=== PATIENT | female | born 1975 | race Caucasian/White ===

== ENCOUNTER 2018-08-20 10:53 | Day surgery (SDC) | payer OTHER ==
[~2018-08-20] VITALS: Ht 167.6 cm; Wt 129.5 kg
[~2018-08-20 10:53] MED LIST: APIX5TAB PO; ASPI-515 PO/NG; ATOR40TA78 PO; CARV12.52 PO; CARV3.122 PO; CEFD300C37 PO; HYDR-3237 PO; INSU100I13 INJ; INSU200I INJ; LISI40TA PO; ONDA4TAB10 PO; POLY17PO5 PO
[2018-08-20 11:20] VITALS: BP 129/95
[2018-08-20] MEDS ORDERED: LIDOCAINE 1%, 50ML ONE (12:46)
== END 2018-08-20 13:24 | disposition home or self-care (01) ==
LOC: CACL 10:53
PROVIDERS: ATTEND Internal Medicine Cardiovascular Disease
DX: Z45.09 Encounter for adjustment and management of other cardiac device (principal); I63.9 Cerebral infarction, unspecified; I10 Essential (primary) hypertension; E78.2 Mixed hyperlipidemia; Z79.899 Other long term (current) drug therapy; Z88.1 Allergy status to other antibiotic agents
CPT/HCPCS: 33282; C1764; J3490

== ENCOUNTER 2018-12-09 06:41 | Emergency (ER) | payer OTHER ==
[~2018-12-09] VITALS: Ht 167.6 cm; Wt 125.0 kg
[2018-12-09] MEDS ORDERED: ONDANSETRON ODT 4 MG PO ONE (07:00)
[2018-12-09] MEDS ORDERED: MORPHINE SULFATE 4 MG/ML, 1ML IVPush PRN (07:00)
--- NOTE | 2018-12-09 07:01 | NUR ---
received report from Damion. pt laying on gurney awake & calm, responds approp to staff, comfort measures rpovided, at BS, call light within reach.
[2018-12-09] MEDS ORDERED: ONDANSETRON ODT 4 MG ONE (07:03)
[2018-12-09] MEDS ORDERED: MORPHINE SULFATE 4 MG/ML, 1ML ONE (07:04)
--- NOTE | 2018-12-09 07:05 | NUR ---
Report to Silvina FAN.
[2018-12-09 07:26] LABS: ALANINE AMINOTRANSFERASE 28 U/L (12-78); ALBUMIN 2.3 g/dL (3.4-5.0); ANION GAP 7 mmol/L (5-15); CALCIUM 8.6 mg/dL (8.5-10.1); CHLORIDE 107 mmol/L (98-107); CREATININE 0.83 mg/dL (0.55-1.02)
[2018-12-09 07:27] LABS: INTERNATIONAL NORMALIZED RATIO 0.99 (0.93-1.1); PROTHROMBIN TIME 10.5 Seconds (9.6-11.5)
[2018-12-09 07:30] LABS: ALKALINE PHOSPHATASE 73 U/L (45-117); BILIRUBIN,TOTAL 0.2 mg/dL (0.2-1.0); TOTAL PROTEIN 6.1 g/dL (6.4-8.2)
[2018-12-09 07:32] LABS: MEAN CORPUSCULAR HEMOGLOBIN 24.6 pg (27.0-34.8); MEAN CORPUSCULAR HGB CONC 31.3 g/dL (32.4-35.8); MEAN CORPUSCULAR VOLUME 78.5 fL (80-100); MEAN PLATELET VOLUME 9.1 fL (7.4-10.4); PLATELET COUNT 542 x10^3/uL (130-400); RED BLOOD COUNT 4.58 x10^6/uL (3.82-5.3)
[2018-12-09 07:59] LABS: BASOPHILS # (AUTO) 0.14 x10^3/uL (0-0.1); BASOPHILS % (AUTO) 1 % (0-1); EOSINOPHILS # (AUTO) 0.23 x10^3/uL (0-0.4); EOSINOPHILS % (AUTO) 2 % (1-7); LYMPHOCYTES # (AUTO) 2.06 x10^3/uL (1-3.4); LYMPHOCYTES % (AUTO) 22 % (22-44); MD MORPH REVIEW ONLY; MONOCYTES # (AUTO) 0.83 x10^3/uL (0.2-0.8); MONOCYTES % (AUTO) 9 % (2-9); NEUTROPHILS # (AUTO) 6.31 x10^3/uL (1.8-6.8); NEUTROPHILS % (AUTO) 66 % (42-75)
--- NOTE | 2018-12-09 07:59 | NUR ---
pt continues to lay on gurney awake & more comfortable after pain med, responds approp to staff, comfort measures provided, at BS, call light within reach. pt to CT
[2018-12-09 08:02] LABS: <PLATELET ESTIMATE> INCREASED; <PLT MORPHOLOGY> NORMAL PLT MORPH; POLYCHROMASIA 1+
[2018-12-09 08:05] LABS: ANISOCYTOSIS 1+
[2018-12-09] MEDS ORDERED: OMNIPAQUE 350 MG/ML, 150 ML BOTTLE ONE (08:22)
[2018-12-09 08:57] VITALS: BP 165/75
--- NOTE | 2018-12-09 08:58 | NUR ---
pt upright on gurney awake & comfortable, responds approp to staff, NAD, comfort measures provided, at BS, call light within reach.
--- NOTE | 2018-12-09 09:53 | NUR ---
Patient given discharge instructions and Rx, they have confirmed that they understand the instructions. Patient ambulatory with steady gait.
== END 2018-12-09 09:54 | disposition home or self-care (01) ==
LOC: ED 09:10
DX: S20.212A Contusion of left front wall of thorax, initial encounter (principal); S20.211A Contusion of right front wall of thorax, initial encounter; S30.1XXA Contusion of abdominal wall, initial encounter; E11.9 Type 2 diabetes mellitus without complications; I10 Essential (primary) hypertension; G43.909 Migraine, unspecified, not intractable, without status migrainosus; Z86.73 Personal history of transient ischemic attack (TIA), and cerebral infarction without residual deficits; V49.09XA Driver injured in collision with other motor vehicles in nontraffic accident, initial encounter; Y93.89 Activity, other specified; Y92.89 Other specified places as the place of occurrence of the external cause; Y99.8 Other external cause status
CPT/HCPCS: 36415; 71260; 74177; 80053; 84703; 85025; 85610; 93005; 96374; 99284; Q0162; Q9967

== ENCOUNTER 2018-12-17 10:04 | Day surgery (SDC) | payer OTHER ==
[~2018-12-17] VITALS: Ht 167.6 cm; Wt 125.0 kg
[2018-12-17] MEDS ORDERED: PLEASE ENTER HEIGHT AND WEIGHT MC SCH (10:30)
[2018-12-17] MEDS ORDERED: SODIUM CHLORIDE 0.9% 1,000 ML IV ONE (10:30)
[2018-12-17 10:34] VITALS: BP 180/107
[2018-12-17] MEDS ORDERED: ATOR80TA PO (10:52)
[2018-12-17] MEDS ORDERED: OMEP-110 PO (10:52)
[2018-12-17] MEDS ORDERED: PROPOFOL 10 MG/ML, 50ML ONE (15:56)
== END 2018-12-17 12:15 | disposition home or self-care (01) ==
LOC: CACL 10:04
PROVIDERS: ATTEND Internal Medicine Cardiovascular Disease
DX: I63.9 Cerebral infarction, unspecified (principal); E11.9 Type 2 diabetes mellitus without complications; I10 Essential (primary) hypertension; D64.9 Anemia, unspecified; E78.2 Mixed hyperlipidemia; Z79.4 Long term (current) use of insulin; Z98.890 Other specified postprocedural states; Z79.01 Long term (current) use of anticoagulants
CPT/HCPCS: 93312; 93321; 93325; J2704

== ENCOUNTER 2019-09-22 14:58 | Outpatient (CLI) | payer OTHER ==
[~2019-09-22 14:58] MED LIST changes: +ATOR80TA PO; +OMEP-110 PO
== END 2019-09-22 23:59 | disposition home or self-care (01) ==
LOC: CFH 14:58
PROVIDERS: ATTEND Nurse Practitioner
DX: I63.9 Cerebral infarction, unspecified (principal)
CPT/HCPCS: 93880

== ENCOUNTER 2019-09-26 08:45 | Emergency (ER) | payer OTHER ==
[~2019-09-26] VITALS: Ht 167.6 cm; Wt 125.0 kg
[2019-09-26 08:47] VITALS: BP 162/79
--- NOTE | 2019-09-26 09:08 | NUR ---
RIGHT FLANK PAIN AND HIGH BLOOD SUGAR TODAY
[2019-09-26 09:33] LABS: FIO2 ROOM AIR %; PH, VENOUS 7.362 pH (7.320-7.420)
[2019-09-26 09:47] LABS: ALBUMIN 2.6 g/dL (3.4-5.0); ANION GAP 6 mmol/L (5-15); BASOPHILS # (AUTO) 0.11 x10^3/uL (0-0.1); BASOPHILS % (AUTO) 2 % (0-1); CALCIUM 8.7 mg/dL (8.5-10.1); CHLORIDE 106 mmol/L (98-107); EOSINOPHILS # (AUTO) 0.22 x10^3/uL (0-0.4); EOSINOPHILS % (AUTO) 3 % (1-7); LYMPHOCYTES # (AUTO) 2.25 x10^3/uL (1-3.4); LYMPHOCYTES % (AUTO) 30 % (22-44); MD NO; MEAN CORPUSCULAR HEMOGLOBIN 29.9 pg (27.0-34.8); MEAN CORPUSCULAR HGB CONC 32.8 g/dL (32.4-35.8); MEAN PLATELET VOLUME 9.3 fL (7.4-10.4); MONOCYTES # (AUTO) 0.57 x10^3/uL (0.2-0.8); MONOCYTES % (AUTO) 8 % (2-9); NEUTROPHILS # (AUTO) 4.47 x10^3/uL (1.8-6.8); NEUTROPHILS % (AUTO) 59 % (42-75); PLATELET COUNT 399 x10^3/uL (130-400); RED BLOOD COUNT 4.97 x10^6/uL (3.82-5.3); RED CELL DISTRIBUTION WIDTH 14.3 % (9.6-15.2)
[2019-09-26 09:50] LABS: MICROSCOPIC AUTO
[2019-09-26 09:51] LABS: CULTURE INDICATED? YES
[2019-09-26 09:53] LABS: ALANINE AMINOTRANSFERASE 43 U/L (12-78); ALKALINE PHOSPHATASE 64 U/L (45-117); BILIRUBIN,TOTAL 0.1 mg/dL (0.2-1.0); CREATININE 1.05 mg/dL (0.55-1.02); TOTAL PROTEIN 6.4 g/dL (6.4-8.2)
--- NOTE | 2019-09-26 10:15 | NUR ---
ultrasound and labs completed and awaiting re-eval. family at bedside
[2019-09-26 10:41] LABS: ACETONE, SERUM Negative (Negative)
== END 2019-09-26 11:25 | disposition home or self-care (01) ==
LOC: ED 09:37
DX: S39.012A Strain of muscle, fascia and tendon of lower back, initial encounter (principal); S29.012A Strain of muscle and tendon of back wall of thorax, initial encounter; E11.65 Type 2 diabetes mellitus with hyperglycemia; N28.9 Disorder of kidney and ureter, unspecified; E78.5 Hyperlipidemia, unspecified; I10 Essential (primary) hypertension; E66.01 Morbid (severe) obesity due to excess calories; Z79.4 Long term (current) use of insulin; X58.XXXA Exposure to other specified factors, initial encounter; Y93.89 Activity, other specified; Y92.89 Other specified places as the place of occurrence of the external cause; Y99.8 Other external cause status
CPT/HCPCS: 36415; 76770; 80053; 81001; 82010; 82803; 82962; 84703; 85025; 87086; 99284